=== PATIENT | female | born 1980 | race Caucasian/White ===

== ENCOUNTER 2019-06-22 22:18 | Outpatient (CLI) | payer OTHER | END 2019-06-22 22:19 | disposition short-term general hospital (02) | LOC: EMS 22:18 | PROVIDERS: ATTEND Surgery | DX: S01.81XA Laceration without foreign body of other part of head, initial encounter (principal); W01.198A Fall on same level from slipping, tripping and stumbling with subsequent striking against other object, initial encounter; Y93.01 Activity, walking, marching and hiking; Y92.833 Campsite as the place of occurrence of the external cause | CPT/HCPCS: A0425; A0429 ==